=== PATIENT | male | born 1965 | race Caucasian/White ===

== ENCOUNTER → 2019-09-20 07:54 | Outpatient (CLI) | payer OTHER, SELFPAY ==
[2019-09-09 14:30] VITALS: BMI 29.4
--- NOTE | 2019-09-20 08:04 | RAD_ITS ---
CLINICAL HISTORY: Male, 54 years old. Reflux, hiatal hernia PROCEDURE: Upper GI series Technique: Multiple fluoroscopic assessment performed after administration of double contrast medium, followed by single contrast medium with images acquired along the esophagus, stomach and duodenum. Findings: Single and also double contrast study of the esophagus demonstrate that there is unremarkable mucosal pattern of the esophagus, without evidence of intraluminal lesion or stricture. A moderate paraesophageal hernia is observed measuring 6.8 x 7.7 x 8.1 cm (craniocaudal by AP by transverse). There is gastroesophageal reflux, up to the mid one-third of the esophagus. Evaluation of stomach demonstrates unremarkable contour of the rugae folds of stomach, without evidence of intraluminal lesion. Unremarkable peristalsis. The duodenal bulb and sweep are unremarkable. RAD/Upper GI w/BA Swallow IMPRESSION: A moderate paraesophageal hernia is observed measuring 6.8 x 7.7 x 8.1 cm (craniocaudal by AP by transverse). Presence of GERD, to mid portion of the esophagus. Otherwise unremarkable mucosal appearance of the esophagus, stomach and duodenum. Electronically Signed: Edison Rudd MD at 15:58 EST Tel [phone], Service support ,
== END ==
PROVIDERS: Referring Provider Surgery; Visit Provider Surgery
DX: K21.9 Gastro-esophageal reflux disease without esophagitis (principal); R13.10 Dysphagia, unspecified
CPT/HCPCS: 74246

== ENCOUNTER 2019-09-22 11:36 | Day surgery (SDC) | payer OTHER, SELFPAY ==
--- NOTE | 2019-09-09 02:59 | HP_ITS ---
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 Is patient in pain?: No Allergies cephalexin [From Keflex] Allergy (Mild, Verified 09/09/19 14:19) rash Medications lisinopril 10 mg tablet PO #30 tab 09/09/19 [History Confirmed 09/09/19] pravastatin 20 mg tablet PO #30 tab 09/09/19 [History Confirmed 09/09/19] sumatriptan 50 mg tablet PO #10 tab 09/09/19 [History Confirmed 09/09/19] PFS Medical History (Updated 09/09/19 @ 14:57 by Karan Cleveland MD) GERD (gastroesophageal reflux disease) (Acute) Cervical radiculopathy (Acute) BETTINA (generalized anxiety disorder) (Acute) GERD (gastroesophageal reflux disease) (Acute) Hyperlipidemia (Acute) IBS (irritable bowel syndrome) (Acute) SOB (shortness of breath) on exertion (Acute) HTN (hypertension) (Chronic) Surgical History (Updated 09/09/19 @ 14:30 by Angela Willis) History of cholecystectomy (Acute) History of colonoscopy (Acute ~2017) History of esophagogastroduodenoscopy (EGD) (Acute ~2017) History of left inguinal hernia repair (Acute) Family History (Updated 09/09/19 @ 14:30 by Angela Willis) Father Hypertension HPI HPI HPI: KARSTEN DOUGLASS, is a 54 M who presents to the office today for HPI HPI Surgical H&P: Yes HPI: KARSTEN DOUGLASS, is a 54 M who presents to the office today for surgical consultation regarding accelerating problems with gastroesophageal reflux disease. The patient presents in self-referral. His primary care physician is Dr. Parra but the patient instructs me that Dr. Parra will be retiring soon. The patient states that for many years he has had reflux. Complains that in the morning after eating he can feel the food coming back up. He will take Prilosec/omeprazole 20 mg sometimes 2 times sometimes 3 times a day. Symptoms are worse at night as well when he lies down. He does not have any coughing. He does note however shortness of breath when he climbs a flight of stairs or plays racquetball. 2 years ago he had a combined upper and lower endoscopy. States that he has been instructed that he does have a hiatal hernia. He is familiar with the patient that I have assisted with a antireflux procedure who had a good outcome. The patient presents to see if he would be a candidate for this. He is a diesel truck technician. He states that he has not had other cardiac or pulmonary issues. He is not ever required a stress test. He has had a previous cholecystectomy. He has had a pyloric stenosis procedure pyloromyotomy at 6 weeks of age. He has had a previous left inguinal hernia repair. ROS General General: No weight change, appetite, fatigue, colon cancer, breast cancer or weakness HEENT HEENT: No difficulty swallowing, eye injury, eye surgery, swollen glands or hoarseness Endo Endocrine: No thyroid disease, diabetes mellitus, thyroid cancer, Hair loss, heat intolerance or cold intolerance Musc Musculoskeletal: Yes back problems and arthritis; no rheumatoid arthritis, gout or joint pain Cardio Cardiovascular: Yes high blood pressure; no murmur, pacemaker, heart disease, atrial fibrillation, heart attack, heart stent, palpitations, shortness of breat with exertion or chest pain Psych Psychiatric: Yes anxiety; no depression or hearing voices Resp Respiratory: Yes shortness of breath, No sleep apnea, No cough, No COPD, No asthma, No emphysema, No wheezing Gastro Gastrointestinal: No abdominal pain, No nausea or vomiting, Yes diarrhea, No constipation, Yes blood in stool, Yes acid reflux, No hemorrhoids, No ulcers, No gallbladder problem, No black,tarry stools Pierre Hematologic: No blood thinners, No blood disorders, No bleeding, No anemia, No blood clots Neuro Neurologic: No weakness Exam Const General: cooperative, healthy appearing, comfortable, no acute distress Nutritional Appearance: average body habitus Orientation: alert, awake, oriented x3 HENMT Head: normal to inspection Eyes General: appearance normal, both eyes and all related structures Resp Effort & Inspection: normal respiratory effort Auscultation: clear to auscultation bilaterally Cardio Rate: regular rate Rhythm: regular rhythm Heart Sounds: no murmurs GI Palpation: soft Other: Well-healed transverse incision inferior to the umbilicus. Tender to palpation in the epigastrium and right upper quadrant and right mid abdomen with voluntary guarding. Normal bowel sounds. Otherwise soft. No hepatosplenomegaly. Patient is more superficially tender to touch than otherwise anticipated Skin General: no rashes or lesions noted Neuro Cognition: normal cognition Extrem General: no calf tenderness bilaterally Psych Affect: normal affect Assessment & Plan Problems 1. Gastroesophageal reflux disease, esophagitis presence not specified K21.9 Plan 54-year-old gentleman. He appears to have symptoms that correlate well with escalating gastroesophageal reflux disease and symptomatic hiatal hernia. I have recommended to him that we obtain a barium swallow. I am interested in the size of the hiatal hernia as well as his history of what sounds like a pyloromyotomy. I recommend to him a esophagogastroduodenoscopy with Quinteros probe placement. I recommend to him a manometric study. In great detail I have discussed with him the reasons behind this testing and the importance of it prior to us considering proceeding with a laparoscopic hiatal hernia repair and reflux procedure. I am suspecting that he would be a better candidate for a partial wrap. He has had an opportunity to ask and have questions answered. He will proceed with testing at his discretion. Cc: Dr. Fidel Cleveland M.D., F.A.C.S. Coding Level of Care Code Off vis,new,level 4 Diagnoses Gastroesophageal reflux disease, esophagitis presence not specified K21.9 ??Esophagitis presence: esophagitis presence not specified 09/09/19 3424 <Electronically signed by Karan villarreal MD> Date _ Karan Cleveland MD Barium swallow demonstrate a moderately large paraesophageal hiatal hernia with reflux noted. We will proceed as indicated with the esophagogastroduodenoscopy and plan placement of the pH probe. I am anticipating recommendations for future esophageal manometry and then subsequent definitive surgery. I suspect that the paraesophageal component of his hernia is causing his dyspnea on exertion. Karan Cleveland M.D., F.A.C.S.
[2019-09-09 14:30] VITALS: BMI 29.4
[2019-09-22 12:05] VITALS: BP 150/94; PULSE 81; RESP 16; TEMP 36.7; O2SAT 99
== END 2019-09-22 12:56 | disposition home or self-care (01) ==
PROVIDERS: Family Provider Nurse Practitioner Family; PCP Nurse Practitioner Family; Referring Provider Nurse Practitioner Family; Visit Provider Surgery
PROC: F00ZJWZ Instrumental Swallowing and Oral Function Assessment using Swallowing Equipment (ICD-10-PCS; CPT 43235; principal; 2019-09-22 12:25)
DX: K21.9 Gastro-esophageal reflux disease without esophagitis (principal)
CPT/HCPCS: 91010; 91013

== ENCOUNTER 2019-09-27 05:48 | Day surgery (SDC) | payer OTHER, SELFPAY ==
--- NOTE | 2019-09-09 02:59 | HP_ITS ---
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 Is patient in pain?: No Allergies cephalexin [From Keflex] Allergy (Mild, Verified 09/09/19 14:19) rash Medications lisinopril 10 mg tablet PO #30 tab 09/09/19 [History Confirmed 09/09/19] pravastatin 20 mg tablet PO #30 tab 09/09/19 [History Confirmed 09/09/19] sumatriptan 50 mg tablet PO #10 tab 09/09/19 [History Confirmed 09/09/19] PFS Medical History (Updated 09/09/19 @ 14:57 by Karan Cleveland MD) GERD (gastroesophageal reflux disease) (Acute) Cervical radiculopathy (Acute) BETTINA (generalized anxiety disorder) (Acute) GERD (gastroesophageal reflux disease) (Acute) Hyperlipidemia (Acute) IBS (irritable bowel syndrome) (Acute) SOB (shortness of breath) on exertion (Acute) HTN (hypertension) (Chronic) Surgical History (Updated 09/09/19 @ 14:30 by Angela Willis) History of cholecystectomy (Acute) History of colonoscopy (Acute ~2017) History of esophagogastroduodenoscopy (EGD) (Acute ~2017) History of left inguinal hernia repair (Acute) Family History (Updated 09/09/19 @ 14:30 by Angela Willis) Father Hypertension HPI HPI HPI: KARSTEN DOUGLASS, is a 54 M who presents to the office today for HPI HPI Surgical H&P: Yes HPI: KARSTEN DOUGLASS, is a 54 M who presents to the office today for surgical consultation regarding accelerating problems with gastroesophageal reflux disease. The patient presents in self-referral. His primary care physician is Dr. Parra but the patient instructs me that Dr. Parra will be retiring soon. The patient states that for many years he has had reflux. Complains that in the morning after eating he can feel the food coming back up. He will take Prilosec/omeprazole 20 mg sometimes 2 times sometimes 3 times a day. Symptoms are worse at night as well when he lies down. He does not have any coughing. He does note however shortness of breath when he climbs a flight of stairs or plays racquetball. 2 years ago he had a combined upper and lower endoscopy. States that he has been instructed that he does have a hiatal hernia. He is familiar with the patient that I have assisted with a antireflux procedure who had a good outcome. The patient presents to see if he would be a candidate for this. He is a delivery truck driver. He states that he has not had other cardiac or pulmonary issues. He is not ever required a stress test. He has had a previous cholecystectomy. He has had a pyloric stenosis procedure pyloromyotomy at 6 weeks of age. He has had a previous left inguinal hernia repair. ROS General General: No weight change, appetite, fatigue, colon cancer, breast cancer or weakness HEENT HEENT: No difficulty swallowing, eye injury, eye surgery, swollen glands or hoarseness Endo Endocrine: No thyroid disease, diabetes mellitus, thyroid cancer, Hair loss, heat intolerance or cold intolerance Musc Musculoskeletal: Yes back problems and arthritis; no rheumatoid arthritis, gout or joint pain Cardio Cardiovascular: Yes high blood pressure; no murmur, pacemaker, heart disease, atrial fibrillation, heart attack, heart stent, palpitations, shortness of breat with exertion or chest pain Psych Psychiatric: Yes anxiety; no depression or hearing voices Resp Respiratory: Yes shortness of breath, No sleep apnea, No cough, No COPD, No asthma, No emphysema, No wheezing Gastro Gastrointestinal: No abdominal pain, No nausea or vomiting, Yes diarrhea, No constipation, Yes blood in stool, Yes acid reflux, No hemorrhoids, No ulcers, No gallbladder problem, No black,tarry stools Pierre Hematologic: No blood thinners, No blood disorders, No bleeding, No anemia, No blood clots Neuro Neurologic: No weakness Exam Const General: cooperative, healthy appearing, comfortable, no acute distress Nutritional Appearance: average body habitus Orientation: alert, awake, oriented x3 HENMT Head: normal to inspection Eyes General: appearance normal, both eyes and all related structures Resp Effort & Inspection: normal respiratory effort Auscultation: clear to auscultation bilaterally Cardio Rate: regular rate Rhythm: regular rhythm Heart Sounds: no murmurs GI Palpation: soft Other: Well-healed transverse incision inferior to the umbilicus. Tender to palpation in the epigastrium and right upper quadrant and right mid abdomen with voluntary guarding. Normal bowel sounds. Otherwise soft. No hepatosplenomegaly. Patient is more superficially tender to touch than otherwise anticipated Skin General: no rashes or lesions noted Neuro Cognition: normal cognition Extrem General: no calf tenderness bilaterally Psych Affect: normal affect Assessment & Plan Problems 1. Gastroesophageal reflux disease, esophagitis presence not specified K21.9 Plan 54-year-old gentleman. He appears to have symptoms that correlate well with escalating gastroesophageal reflux disease and symptomatic hiatal hernia. I have recommended to him that we obtain a barium swallow. I am interested in the size of the hiatal hernia as well as his history of what sounds like a pyloromyotomy. I recommend to him a esophagogastroduodenoscopy with Quinteros probe placement. I recommend to him a manometric study. In great detail I have discussed with him the reasons behind this testing and the importance of it prior to us considering proceeding with a laparoscopic hiatal hernia repair and reflux procedure. I am suspecting that he would be a better candidate for a partial wrap. He has had an opportunity to ask and have questions answered. He will proceed with testing at his discretion. Cc: Dr. Fidel Cleveland M.D., F.A.C.S. Coding Level of Care Code Off vis,new,level 4 Diagnoses Gastroesophageal reflux disease, esophagitis presence not specified K21.9 ??Esophagitis presence: esophagitis presence not specified 09/09/19 4095 <Electronically signed by Karan villarreal MD> Date _ Karan Cleveland MD
[2019-09-09 14:30] VITALS: BMI 29.4
[2019-09-27 06:35] VITALS: BP 126/85; PULSE 78; RESP 16; O2SAT 96; BMI 28.1
[2019-09-27] MEDS: Lactated Ringers 1,000 ML 100 ML IV (06:48)
--- NOTE | 2019-09-27 06:54 | PCM.HP.BLA ---
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 Is patient in pain?: No Allergies cephalexin [From Keflex] Allergy (Mild, Verified 09/09/19 14:19) rash Medications lisinopril 10 mg tablet PO #30 tab 09/09/19 [History Confirmed 09/09/19] pravastatin 20 mg tablet PO #30 tab 09/09/19 [History Confirmed 09/09/19] sumatriptan 50 mg tablet PO #10 tab 09/09/19 [History Confirmed 09/09/19] [facility] Medical History (Updated 09/09/19 @ 14:57 by Karan Cleveland MD) GERD (gastroesophageal reflux disease) (Acute) Cervical radiculopathy (Acute) BETTINA (generalized anxiety disorder) (Acute) GERD (gastroesophageal reflux disease) (Acute) Hyperlipidemia (Acute) IBS (irritable bowel syndrome) (Acute) SOB (shortness of breath) on exertion (Acute) HTN (hypertension) (Chronic) Surgical History (Updated 09/09/19 @ 14:30 by Angela Willis) History of cholecystectomy (Acute) History of colonoscopy (Acute ~2017) History of esophagogastroduodenoscopy (EGD) (Acute ~2017) History of left inguinal hernia repair (Acute) Family History (Updated 09/09/19 @ 14:30 by Angela Willis) Father Hypertension HPI HPI HPI: KARSTEN DOUGLASS, is a 54 M who presents to the office today for HPI HPI Surgical H&P: Yes HPI: KARSTEN DOUGLASS, is a 54 M who presents to the office today for surgical consultation regarding accelerating problems with gastroesophageal reflux disease. The patient presents in self-referral. His primary care physician is Dr. Parra but the patient instructs me that Dr. Parra will be retiring soon. The patient states that for many years he has had reflux. Complains that in the morning after eating he can feel the food coming back up. He will take Prilosec/omeprazole 20 mg sometimes 2 times sometimes 3 times a day. Symptoms are worse at night as well when he lies down. He does not have any coughing. He does note however shortness of breath when he climbs a flight of stairs or plays rac[employer]. 2 years ago he had a combined upper and lower endoscopy. States that he has been instructed that he does have a hiatal hernia. He is familiar with the patient that I have assisted with a antireflux procedure who had a good outcome. The patient presents to see if he would be a candidate for this. He is a garbage truck driver. He states that he has not had other cardiac or pulmonary issues. He is not ever required a stress test. He has had a previous cholecystectomy. He has had a pyloric stenosis procedure pyloromyotomy at 6 weeks of age. He has had a previous left inguinal hernia repair. ROS General General: No weight change, appetite, fatigue, colon cancer, breast cancer or weakness HEENT HEENT: No difficulty swallowing, eye injury, eye surgery, swollen glands or hoarseness Endo Endocrine: No thyroid disease, diabetes mellitus, thyroid cancer, Hair loss, heat intolerance or cold intolerance Musc Musculoskeletal: Yes back problems and arthritis; no rheumatoid arthritis, gout or joint pain Cardio Cardiovascular: Yes high blood pressure; no murmur, pacemaker, heart disease, atrial fibrillation, heart attack, heart stent, palpitations, shortness of breat with exertion or chest pain Psych Psychiatric: Yes anxiety; no depression or hearing voices Resp Respiratory: Yes shortness of breath, No sleep apnea, No cough, No COPD, No asthma, No emphysema, No wheezing Gastro Gastrointestinal: No abdominal pain, No nausea or vomiting, Yes diarrhea, No constipation, Yes blood in stool, Yes acid reflux, No hemorrhoids, No ulcers, No gallbladder problem, No black,tarry stools Pierre Hematologic: No blood thinners, No blood disorders, No bleeding, No anemia, No blood clots Neuro Neurologic: No weakness Exam Const General: cooperative, healthy appearing, comfortable, no acute distress Nutritional Appearance: average body habitus Orientation: alert, awake, oriented x3 HENMT Head: normal to inspection Eyes General: appearance normal, both eyes and all related structures Resp Effort & Inspection: normal respiratory effort Auscultation: clear to auscultation bilaterally Cardio Rate: regular rate Rhythm: regular rhythm Heart Sounds: no murmurs GI Palpation: soft Other: Well-healed transverse incision inferior to the umbilicus. Tender to palpation in the epigastrium and right upper quadrant and right mid abdomen with voluntary guarding. Normal bowel sounds. Otherwise soft. No hepatosplenomegaly. Patient is more superficially tender to touch than otherwise anticipated Skin General: no rashes or lesions noted Neuro Cognition: normal cognition Extrem General: no calf tenderness bilaterally Psych Affect: normal affect Assessment & Plan Problems 1. Gastroesophageal reflux disease, esophagitis presence not specified K21.9 Plan 54-year-old gentleman. He appears to have symptoms that correlate well with escalating gastroesophageal reflux disease and symptomatic hiatal hernia. I have recommended to him that we obtain a barium swallow. I am interested in the size of the hiatal hernia as well as his history of what sounds like a pyloromyotomy. I recommend to him a esophagogastroduodenoscopy with Quinteros probe placement. I recommend to him a manometric study. In great detail I have discussed with him the reasons behind this testing and the importance of it prior to us considering proceeding with a laparoscopic hiatal hernia repair and reflux procedure. I am suspecting that he would be a better candidate for a partial wrap. He has had an opportunity to ask and have questions answered. He will proceed with testing at his discretion. Cc: Dr. Fidel Cleveland M.D., F.A.C.S. Coding Level of Care Code Off vis,new,level 4 Diagnoses Gastroesophageal reflux disease, esophagitis presence not specified K21.9 ??Esophagitis presence: esophagitis presence not specified 09/09/19 0150 <Electronically signed by Karan Cleveland MD> Date Karan Cleveland MD Moderately large paraesophageal hiatal hernia identified on barium swallow. I suspect that this is adding to his shortness of breath with exertion. Plan to proceed with esophagogastroduodenoscopy with biopsy and pH probe placement. Karan Cleveland M.D., F.A.C.S.
--- NOTE | 2019-09-27 07:00 | EGD_PTH ---
PATIENT: KARSTEN DOUGLASS LOC: EN U#:[id number] AGE/SX: 54/M ROOM: RE09/27/[address]: Dr. Karan Cleveland MD : 1965 BED: DIS: 09/27/2019 SPEC #: [id number] RECD: 09/27/19 12:15 STATUS: KODAK TRICIA #: [id number] MAXIM: 09/27/19 07:[address]: Karan Cleveland DEPT: SURGICAL PATHOLOGY RECD BY: Clarence Arriola ENTERED: 09/27/19 12:16 SP TYPE: EGD BIOPSY OT DR: Dr. Audelia Parra MD Tissues: A - Duodenum, NOS B - Gastric mucous membrane C - Esophageal mucous membrane Procedures: PAS Fungus (control) Special Stain Group I Surgery Specimen Level IV HEADER OPERATION: EGD - PH probe ([facility] [place] PRE-OP DIAGNOSIS: GERD TISSUE SUBMITTED: A - Duodenal biopsy, B - Antral biopsy for H. pylori and pathology, C - Distal esophageal biopsy MICROSCOPIC DIAGNOSIS A. Duodenal biopsy: A fragment of duodenal mucosa with Bridgette gland hyperplasia. B. Antral biopsy: Mild gastritis. See microscopic description and comment. C. Distal esophagus, biopsy: Fragments of squamous epithelium with superficial erosion and acute inflammation. Focal minimal chronic inflammation. Special stain for fungi is negative for organisms; matched control is appropriate. SJ:corbin 09/29/19 COMMENT B. The results of immunohistochemistry for Helicobacter pylori will be reported separately ([id number]). MICROSCOPIC DESCRIPTION Slides are reviewed. B. The specimen shows fragments of gastric mucosa with chronic inflammatory cell infiltrates in the lamina propria consisting of lymphocytes and plasma cells, consistent with mild chronic gastritis. GROSS DESCRIPTION A - Received in fixative is one container labeled with the patient's name and designated duodenum biopsy. The specimen consists of one irregular fragment of light wan soft tissue that measures 0.5 x 0.2 x 0.1 cm. The specimen is totally submitted in one cassette. B - Received in fixative is one container labeled with the patient's name and designated antral biopsy. The specimen consists of one irregular fragment of light wan soft tissue that measures 0.2 x 0.2 x 0.1 cm. The specimen is totally submitted in one cassette. C - Received in fixative is one container labeled with the patient's name and designated distal esophagus. The specimen consists of multiple irregular fragments of light wan soft tissue that in aggregate measure 0.6 x 0.3 x 0.1 cm. The specimen is totally submitted in one cassette. / AM:corbin 09/27/19 TC:3 CPT: 62907 x3, [id number]
--- NOTE | 2019-09-27 07:00 | IMM_PTH ---
PATIENT: KARSTEN DOUGLASS LOC: EN U#:[id number] AGE/SX: 54/M ROOM: RE09/27/[address]: Dr. Karan Cleveland MD : 1965 BED: DIS: 09/27/2019 SPEC #: [id number] RECD: 09/27/19 12:04 STATUS: KODAK REBritany #: [id number] MAXIM: 09/27/19 07:[address]: Karan Cleveland DEPT: IMMUNOHISTOCHEMISTRY RECD BY: Samra Rich ENTERED: 09/27/19 12:05 SP TYPE: IMMUNO OTHR DR: Dr. Audelia Parra MD Tissues: B - Stomach, NOS Procedures: H Pylori (initial) PHYSICIAN & INSTITUTION [place] [address] SPECIMEN INFORMATION: Tissue Source: B - Antral biopsy Clinical Info: GERD Specimen Number: [id number] CPT code: 30075 METHODOLOGY: Deparaffinized sections of prefer/formalin-fixed tissue or PAP/DQ stained slides are incubated with monoclonal/polyclonal antibodies/oligonucleotide probes. Localization is made via biotin free immunoperoxidase method. Appropriate controls are performed and reacted as expected. Results on target cell population are indicated in the following table: RESULTS: ANTIBODY / CLONE RESULT Block B H Pylori (polyclonal) negative These tests were developed and their performance characteristics determined by [facility]. They may not have been cleared or approved by the U.S. Food and Drug Administration. The FDA has determined that such clearance or approval is not necessary. INTERPRETATION: B. Antral biopsy: Negative for Helicobacter pylori organisms. SJ:corbin 09/29/19
[2019-09-27 07:25] VITALS: BP 115/81; BP 126/85; PULSE 73; RESP 16; TEMP 36.8; O2SAT 98
--- NOTE | 2019-09-27 07:27 | OP.EGD_ITS ---
Patient Name: Fidencio Espinal Procedure Date: 09/27/2019 6:58 AM Date of : 1965 Age: 54 Procedure: Upper GI endoscopy Indications: Suspected esophageal reflux Providers: Karan Cleveland MD Referring MD: Audelia Parra Md Medicines: See the Anesthesia note for documentation of the administered medications Complications: No immediate complications. Procedure: Pre-Anesthesia Assessment: - Prior to the procedure, a History and Physical was performed, and patient medications and allergies were reviewed. The patient's tolerance of previous anesthesia was also reviewed. The risks and benefits of the procedure and the sedation options and risks were discussed with the patient. All questions were answered, and informed consent was obtained. Prior Anticoagulants: The patient has taken no previous anticoagulant or antiplatelet agents. ASA Grade Assessment: II - A patient with mild systemic disease. After reviewing the risks and benefits, the patient was deemed in satisfactory condition to undergo the procedure. After obtaining informed consent, the endoscope was passed under direct vision. Throughout the procedure, the patient's blood pressure, pulse, and oxygen saturations were monitored continuously. The gastroscope was introduced through the mouth, and advanced to the second part of duodenum. The upper GI endoscopy was accomplished without difficulty. The patient tolerated the procedure well. Scope In: 7:09:39 AM Scope Out: 7:18:24 AM Total Procedure Duration Time 0 hours 8 minutes 45 seconds Findings: LA Grade B (one or more mucosal breaks greater than 5 mm, not extending between the tops of two mucosal folds) esophagitis with no bleeding was found 40 cm from the incisors. Biopsies were taken with a cold forceps for histology. A medium-sized hiatal hernia was present. Diffuse erythematous mucosa without bleeding was found in the gastric antrum. Biopsies were taken with a cold forceps for histology. Diffuse mildly erythematous mucosa without active bleeding and with no stigmata of bleeding was found in the duodenal bulb. Biopsies were taken with a cold forceps for histology. The CHAU capsule with delivery system was introduced through the mouth and advanced into the esophagus, such that the CHAU pH capsule was positioned 34 cm from the incisors, which was 6 cm proximal to the GE junction. The CHAU pH capsule was then deployed and attached to the esophageal mucosa. The delivery system was then withdrawn. Endoscopy was utilized for probe placement and diagnostic evaluation. Impression: - LA Grade B reflux esophagitis. Biopsied. - Medium-sized hiatal hernia. - Erythematous mucosa in the antrum. Biopsied. - Erythematous duodenopathy. Biopsied. - The CHAU pH capsule was deployed. Recommendation: - Discharge patient to home. - Resume previous diet. - Continue present medications. - Return to my office in 10 days. Procedure Code(s): --- Professional --- 34281, 51, Esophagogastroduodenoscopy, flexible, transoral; with biopsy, single or multiple 96407, Esophagus, gastroesophageal reflux test; with mucosal attached telemetry pH electrode placement, recording, analysis and interpretation Diagnosis Code(s): --- Professional --- K21.0, Gastro-esophageal reflux disease with esophagitis K44.9, Diaphragmatic hernia without obstruction or gangrene K31.89, Other diseases of stomach and duodenum CPT copyright 2017 [employer]. All rights reserved. The codes documented in this report are preliminary and upon corporate associate review may be revised to meet current compliance requirements. Karan Cleveland MD 09/27/2019 7:27:07 AM This report has been signed electronically. Number of Addenda: 0 Note Initiated On: 09/27/2019 6:58 AM
[2019-09-27 07:30] VITALS: BP 117/79; BP 126/85; PULSE 82; RESP 16; O2SAT 94
[2019-09-27 07:35] VITALS: BP 114/80; BP 126/85; PULSE 78; RESP 16; O2SAT 92
[2019-09-27 07:40] VITALS: BP 116/76; BP 126/85; PULSE 78; RESP 16; TEMP 36.8; O2SAT 93
[2019-09-27 08:30] VITALS: BP 126/85
== END 2019-09-27 08:31 | disposition home or self-care (01) ==
LOC: EN 05:48 → AC 05:49
PROVIDERS: Visit Provider Surgery
PROC: (CPT 43239; principal; 2019-09-27 06:55)
DX: K21.0 Gastro-esophageal reflux disease with esophagitis (principal); K29.70 Gastritis, unspecified, without bleeding; K44.9 Diaphragmatic hernia without obstruction or gangrene; K31.89 Other diseases of stomach and duodenum; I10 Essential (primary) hypertension; E78.00 Pure hypercholesterolemia, unspecified; G43.909 Migraine, unspecified, not intractable, without status migrainosus; Z79.899 Other long term (current) drug therapy
CPT/HCPCS: 43239; 91035; 88305; 88312; 88342; J7120; J2405

== ENCOUNTER 2019-10-31 14:47 | Observation (INO) | payer OTHER, SELFPAY ==
--- NOTE | 2019-10-28 14:19 | EKG12_ITS ---
Test Reason : PREOP Blood Pressure : / mmHG Vent. Rate : 074 BPM Atrial Rate : 074 BPM P-R Int : 146 ms QRS Dur : 100 ms QT Int : 388 ms P-R-T Axes : 069 034 059 degrees QTc Int : 430 ms Normal sinus rhythm Normal ECG Confirmed by LEIGHTON NAVA, LEROY ([id number]), primer expeditor and drier RADHA PRIETO ([id number]) on 11/01/2019 8:14:02 AM Referred By: Karan Cleveland Confirmed By:LEROY MANZANARES MD
[2019-10-28 14:50] LABS: Hemoglobin 12.8 g/dL (13.0-16.5); Mean Corp Hgb Conc 30.5 g/dL (32-36); Mean Corpuscular Hgb 24.7 pg (27.0-32.0); Mean Corpuscular Volume 81.1 fL (80-94); Mean Platelet Vol. 11.1 fl (6.2-12.0); Platelet Count 240 K/mm3 (150-450); RBC Distribution Width CV 13.6 % (11.6-14.6); RBC Distribution Width SD 39.8 fl (35.1-43.9); Red Blood Count 5.18 M/mm3 (4.6-6.2); White Blood Count 7.2 K/mm3 (4.4-11.0)
[2019-10-28 15:07] LABS: Anion Gap 4 (5-15); BUN 13 mg/dL (7-18); BUN/Creat Ratio 11.8 RATIO (10-20); Chloride 106 mmol/L (98-107); EST Glomerular Filtration Rate 74 mL/min (>60); Est Glom Filt Rate - Afr Amer 90 mL/min (>60); Glucose 96 mg/dL (74-106); Potassium 3.5 mmol/L (3.5-5.1); Sodium Level 138 mmol/L (136-145)
[2019-10-31] VITALS (13 sets, daily range): BP systolic 107–153; BP diastolic 62–97; PULSE 71–99; RESP 16–18; TEMP 36.4–37.1; O2SAT 93–97; BMI 27.8
[2019-10-31] MEDS: Lactated Ringers 1,000 ML 100 ML IV (06:18)
--- NOTE | 2019-10-31 06:32 | HP.PCM_ITS ---
Problem List (1) GERD (gastroesophageal reflux disease) Status: Acute Qualifiers: Esophagitis presence: with esophagitis Qualified Code(s): K21.0 - Gastro- esophageal reflux disease with esophagitis History and Physical Date of Admission: 10/31/19 MR#:[id number] Name: FIDENCIO DOUGLASS Rep #: [id number] : 1965 Provider: Karan Cleveland MD Age/Sex: 54/M Location: [facility] Status: Signed Intake Intake Visit Reasons: PH probe, manometry, UGI Chief Complaint: results Leadership Program Associate Required: No Is patient in pain?: No Allergies cephalexin [From Keflex] Allergy (Mild, Verified 09/23/19 08:51) rash Medications lisinopril 10 mg tablet 10 mg PO DAILY #30 tab 09/09/19 [History Confirmed 10/07/19] pravastatin 20 mg tablet 20 mg PO DAILY #30 tab 09/09/19 [History Confirmed 10/07/19] sumatriptan succinate 50 mg tablet 50 mg PO PRN PRN #10 tab 09/09/19 [History Confirmed 10/07/19] Omeprazole [Prilosec] 20 mg PO BID 09/23/19 [History Confirmed 10/07/19] Subjective Details: [facility] Medical Records Department [address] [place] [address] EGD Report MR#: [id number] Name:FIDENCIO DOUGLASSep #:[id number] : 1965 54From: Karan Cleveland MD PCP:Audelia Parra MD Status:[facility] Patient Name: Fidencio Douglass Procedure Date: 09/27/2019 6:58 AM Date of : 1965 Age: 54 Procedure: Upper GI endoscopy Indications: Suspected esophageal reflux Providers: Karan Cleveland MD Referring MD: Audelia Parra Md Medicines: See the Anesthesia note for documentation of the administered medications Complications: No immediate complications. Procedure: Pre-Anesthesia Assessment: - Prior to the procedure, a History and Physical was performed, and patient medications and allergies were reviewed. The patient's tolerance of previous anesthesia was also reviewed. The risks and benefits of the procedure and the sedation options and risks were discussed with the patient. All questions were answered, and informed consent was obtained. Prior Anticoagulants: The patient has taken no previous anticoagulant or antiplatelet agents. ASA Grade Assessment: II - A patient with mild systemic disease. After reviewing the risks and benefits, the patient was deemed in satisfactory condition to undergo the procedure. After obtaining informed consent, the endoscope was passed under direct vision. Throughout the procedure, the patient's blood pressure, pulse, and oxygen saturations were monitored continuously. The gastroscope was introduced through the mouth, and advanced to the second part of duodenum. The upper GI endoscopy was accomplished without difficulty. The patient tolerated the procedure well. Scope In: 7:09:39 AM Scope Out: 7:18:24 AM Total Procedure Duration Time 0 hours 8 minutes 45 seconds Findings: LA Grade B (one or more mucosal breaks greater than 5 mm, not extending between the tops of two mucosal folds) esophagitis with no bleeding was found 40 cm from the incisors. Biopsies were taken with a cold forceps for histology. A medium-sized hiatal hernia was present. Diffuse erythematous mucosa without bleeding was found in the gastric antrum. Biopsies were taken with a cold forceps for histology. Diffuse mildly erythematous mucosa without active bleeding and with no stigmata of bleeding was found in the duodenal bulb. Biopsies were taken with a cold forceps for histology. The CHAU capsule with delivery system was introduced through the mouth and advanced into the esophagus, such that the CHAU pH capsule was positioned 34 cm from the incisors, which was 6 cm proximal to the GE junction. The CHAU pH capsule was then deployed and attached to the esophageal mucosa. The delivery system was then withdrawn. Endoscopy was utilized for probe placement and diagnostic evaluation. Impression: - LA Grade B reflux esophagitis. Biopsied. - Medium-sized hiatal hernia. - Erythematous mucosa in the antrum. Biopsied. - Erythematous duodenopathy. Biopsied. - The CHAU pH capsule was deployed. Recommendation: - Discharge patient to home. - Resume previous diet. - Continue present medications. - Return to my office in 10 days. Procedure Code(s): --- Professional --- 79477, 51, Esophagogastroduodenoscopy, flexible, transoral; with biopsy, single or multiple 52563, Esophagus, gastroesophageal reflux test; with mucosal attached telemetry pH electrode placement, recording, analysis and interpretation Diagnosis Code(s): --- Professional --- K21.0, Gastro-esophageal reflux disease with esophagitis K44.9, Diaphragmatic hernia without obstruction or gangrene K31.89, Other diseases of stomach and duodenum CPT copyright 2017 [employer]. All rights reserved. The codes documented in this report are preliminary and upon barrel cooper review may be revised to meet current compliance requirements. Karan Cleveland MD 09/27/2019 7:27:07 AM This report has been signed electronically. Number of Addenda: 0 Note Initiated On: 09/27/2019 6:58 AM 09/27/19 0727 Date Karan Cleveland MD [facility] Imaging Services [address] [place] [id number] Upper GI w/BA Swallow MR#: [id number] Name: FIDENCIO DOUGLASS #:[id number] : 1965 54 From: Edison Rudd MD PCP:Audelia Parra MD Status:REG CLI Study:Upper GI w/BA Swallow Date of Exam:09/20/19 Exam#[id number] Ordering Dr: Karan Cleveland MD CLINICAL HISTORY: Male, 54 years old. Reflux, hiatal hernia PROCEDURE: Upper GI series Technique: Multiple fluoroscopic assessment performed after administration of double contrast medium, followed by single contrast medium with images acquired along the esophagus, stomach and duodenum. Findings: Single and also double contrast study of the esophagus demonstrate that there is unremarkable mucosal pattern of the esophagus, without evidence of intraluminal lesion or stricture. A moderate paraesophageal hernia is observed measuring 6.8 x 7.7 x 8.1 cm (craniocaudal by AP by transverse). There is gastroesophageal reflux, up to the mid one-third of the esophagus. Evaluation of stomach demonstrates unremarkable contour of the rugae folds of stomach, without evidence of intraluminal lesion. Unremarkable peristalsis. The duodenal bulb and sweep are unremarkable. RAD/Upper GI w/BA Swallow IMPRESSION: A moderate paraesophageal hernia is observed measuring 6.8 x 7.7 x 8.1 cm (craniocaudal by AP by transverse). Presence of GERD, to mid portion of the esophagus. Otherwise unremarkable mucosal appearance of the esophagus, stomach and duodenum. Electronically Signed: Edison Rudd MD at 15:58 EST Tel [phone], Service support , Intake Visit Reasons: REFLUX & ABD PAIN/HX OF HIATAL HERNIA Chief Complaint: GERD Leadership Program Associate Required: No Is patient in pain?: No Allergies cephalexin [From Keflex] Allergy (Mild, Verified 09/09/19 14:19) rash Medications lisinopril 10 mg tablet PO #30 tab 09/09/19 [History Confirmed 09/09/19] pravastatin 20 mg tablet PO #30 tab 09/09/19 [History Confirmed 09/09/19] sumatriptan 50 mg tablet PO #10 tab 09/09/19 [History Confirmed 09/09/19] PFSH Medical History (Updated 09/09/19 @ 14:57 by Karan Cleveland MD) GERD (gastroesophageal reflux disease) (Acute) Cervical radiculopathy (Acute) BETTINA (generalized anxiety disorder) (Acute) GERD (gastroesophageal reflux disease) (Acute) Hyperlipidemia (Acute) IBS (irritable bowel syndrome) (Acute) SOB (shortness of breath) on exertion (Acute) HTN (hypertension) (Chronic) Surgical History (Updated 09/09/19 @ 14:30 by Angela Willis) History of cholecystectomy (Acute) History of colonoscopy (Acute ~2017) History of esophagogastroduodenoscopy (EGD) (Acute ~2017) History of left inguinal hernia repair (Acute) Family History (Updated 09/09/19 @ 14:30 by Angela Willis) Father Hypertension HPI HPI Surgical H&P: Yes HPI: FIDENCIO DOUGLASS, is a 54 M who presents to the office today for surgical consultation regarding accelerating problems with gastroesophageal reflux disease. The patient presents in self-referral. His primary care physician is Dr. Parra but the patient instructs me that Dr. Parra will be retiring soon. The patient states that for many years he has had reflux. Complains that in the morning after eating he can feel the food coming back up. He will take Prilosec/omeprazole 20 mg sometimes 2 times sometimes 3 times a day. Symptoms are worse at night as well when he lies down. He does not have any coughing. He does note however shortness of breath when he climbs a flight of stairs or plays racquetball. 2 years ago he had a combined upper and lower endoscopy. States that he has been instructed that he does have a hiatal hernia. He is familiar with the patient that I have assisted with a antireflux procedure who had a good outcome. The patient presents to see if he would be a candidate for this. He is a otr tanker truck driver. He states that he has not had other cardiac or pulmonary issues. He is not ever required a stress test. He has had a previous cholecystectomy. He has had a pyloric stenosis procedure pyloromyotomy at 6 weeks of age. He has had a previous left inguinal hernia repair. ROS General General: No weight change, appetite, fatigue, colon cancer, breast cancer or weakness HEENT HEENT: No difficulty swallowing, eye injury, eye surgery, swollen glands or hoar seness Endo Endocrine: No thyroid disease, diabetes mellitus, thyroid cancer, Hair loss, heat intolerance or cold intolerance Musc Musculoskeletal: Yes back problems and arthritis; no rheumatoid arthritis, gout or joint pain Cardio Cardiovascular: Yes high blood pressure; no murmur, pacemaker, heart disease, atrial fibrillation, heart attack, heart stent, palpitations, shortness of breat with exertion or chest pain Psych Psychiatric: Yes anxiety; no depression or hearing voices Resp Respiratory: Yes shortness of breath, No sleep apnea, No cough, No COPD, No asthma, No emphysema, No wheezing Gastro Gastrointestinal: No abdominal pain, No nausea or vomiting, Yes diarrhea, No constipation, Yes blood in stool, Yes acid reflux, No hemorrhoids, No ulcers, No gallbladder problem, No black,tarry stools Pierre Hematologic: No blood thinners, No blood disorders, No bleeding, No anemia, No blood clots Neuro Neurologic: No weakness Exam Const General: cooperative, healthy appearing, comfortable, no acute distress Nutritional Appearance: average body habitus Orientation: alert, awake, oriented x3 HENMT Head: normal to inspection Eyes General: appearance normal, both eyes and all related structures Resp Effort & Inspection: normal respiratory effort Auscultation: clear to auscultation bilaterally Cardio Rate: regular rate Rhythm: regular rhythm Heart Sounds: no murmurs GI Palpation: soft Other: Well-healed transverse incision inferior to the umbilicus. Tender to palpation in the epigastrium and right upper quadrant and right mid abdomen with voluntary guarding. Normal bowel sounds. Otherwise soft. No hepatosplenomegaly. Patient is more superficially tender to touch than otherwise anticipated Skin General: no rashes or lesions noted Neuro Cognition: normal cognition Extrem General: no calf tenderness bilaterally Psych Affect: normal affect Assessment & Plan Problems 1. Gastroesophageal reflux disease, esophagitis presence not specified K21.9 Plan 54-year-old gentleman. He appears to have symptoms that correlate well with escalating gastroesophageal reflux disease and symptomatic hiatal hernia. I have recommended to him that we obtain a barium swallow. I am interested in the size of the hiatal hernia as well as his history of what sounds like a pyloromyotomy. I recommend to him a esophagogastroduodenoscopy with Chau probe placement. I recommend to him a manometric study. In great detail I have discussed with him the reasons behind this testing and the importance of it prior to us considering proceeding with a laparoscopic hiatal hernia repair and reflux procedure. I am suspecting that he would be a better candidate for a partial wrap. He has had an opportunity to ask and have questions answered. He will proceed with testing at his discretion. Cc: Dr. Fidel Cleveland M.D., F.A.C.S. Assessment & Plan Problems 1. Gastroesophageal reflux disease, esophagitis presence not specified K21.9 2. Hiatal hernia K44.9 3. Gastritis K29.70 Plan Today's appointment was a 40-minute [id number] consultative appointment. The patient had initially presented to me with reflux-like symptoms and dyspnea on exertion. As noted above my initial effort was to obtain a barium swallow. A moderate sized paraesophageal hiatal hernia was identified. Reflux was identified. Subsequently on September 27, 2019 I performed a esophagogastroduodenoscopy with biopsies and pH probe placement. Mild gastritis was identified. H. pylori negative. Distal esophageal biopsies showed superficial erosion and acute inflammation. Fungus was negative. Day 1 DeMeester score was 83.3. Day 2 was 43.4. Average was 64.9 The patient then had a esophageal manometry on September 22, 2019. 10 swallows were analyzed. The patient had good bolus clearance but based upon DCI had ineffective swallow. Is felt that the esophageal swallowing pattern pressure was low. LES relaxation is normal. I had an extensive discussion with the patient today. It is of note that he does not experience clinically any difficulty with swallowing. He never has food that gets hung up or feels like peristalsis is slow. We had an extensive discussion regarding his hiatal hernia. I believe that this is contributing to his dyspnea on exertion particularly as he climbs stairs. It is apparent that he has a wide open lower esophagus with acid reflux. He reminds me that in infancy had what sounds like a pyloromyotomy. He has had a previous cholecystectomy. In great detail we discussed treatment options. I am offering him a laparoscopic repair of his hiatal hernia and a laparoscopic toupet. Great care will be pursued with hiatus approximation and measurement. I am not anticipating an overzealous wrap. He has had an opportunity to ask and have questions answered. He is a long-local driver. He is aware that he will require some time off of work. No guarantees of success have been offered. We did discuss the potential for postprocedural upper endoscopy and/or dilatation if indicated. Based upon his clinical presentation with no difficulties with swallowing I believe that the conservative toupet procedure is the best means of approach. He has had an opportunity to ask multiple questions and have them answered. We will schedule and proceed at his discretion. Cc: Dr. Audelia Cleveland M.D., F.A.C.S. Coding Level of Care Code Off vis,est,level 3 Diagnoses Gastroesophageal reflux disease, esophagitis presence not specified K21.9 ??Esophagitis presence: esophagitis presence not specified Hiatal hernia K44.9 Gastritis K29.70 I have re-examined the patient. There are no clinical changes since date of exam.
--- NOTE | 2019-10-31 06:35 | PCM.DC.GS ---
<Karan Cleveland - Last Filed: 10/31/19 06:35> Discharge Diet: - - Liquid diet with advancement as discussed Discharge Activity: May Not Drive - for 3-5 days or while taking narcotic pain medicine. May shower in (days): 1 Lifting Restrictions: 10 pounds Call your doctor if your incision/area has: Continuous Slow Oozing, Sudden Increased Bleeding, Increased Pain/ Swelling, Increased Redness, Foul Smelling Discharge Call your doctor if you observe: Fever of 101 or Higher Suture Line Care: Avoid Pulling/Pushing, Avoid Pinching/Bending Additional Dressing/Incision Instructions:: Change or remove dressing in 4 days. Leave steri-strips in place for 1 week. Allergies/Adverse Reactions: Allergies cephalexin [From Keflex] Allergy (Mild, Verified 10/31/19 05:50) rash Medications to take at Discharge lisinopril 10 mg tablet 10 mg PO DAILY #30 tab 09/09/19 pravastatin 20 mg tablet 20 mg PO DAILY #30 tab 09/09/19 sumatriptan succinate 50 mg tablet 50 mg PO PRN PRN #10 tab 09/09/19 Omeprazole [Prilosec] 20 mg PO BID 09/23/19 Calcium (Elemental) [Os-Siva 500] 500 mg PO DAILY 10/24/19 Orders to be completed after discharge: 12 Lead EKG [[facility]S] Time Frame: 10/24/19, Facility: [facility], Location: Cardiovascular Services Basic Metabolic Profile (BMP) Time Frame: 10/24/19, Facility: [facility], Location: Laboratory CBC-Complete Blood Cnt No Diff Time Frame: 10/24/19, Facility: [facility], Location: Laboratory Primary Care Physician: Paula Bledsoe NP-C [Primary Care Provider] - Test Results: Test results from this visit will be discussed in further detail at your follow-up appointment, if applicable. Please Follow Up With: Karan Cleveland MD - [phone] When: Call to make an appointment to be seen in about 10 days. <Awilda Selby - Last Filed: 11/01/19 07:54> Discharge Diet: - - Liquid diet with advancement as discussed. Additional Instructions: Diet after Suzanna Fundoplication Surgery After surgery, you will have swelling where the esophagus connects to the stomach. The swelling will make it hard for you to swallow or burp because the opening will be smaller than normal. The feeling of tightness and trouble swallowing will go away over the next 3 to 12 weeks. Diet after surgery for the first 7 days: Water, Milk or cream, Fruit or vegetable juices without pulp, coffee or tea, Instant breakfast drinks, Creamed soups without chunks, yogurt without fruit, Broth, Thin cream of wheat or oatmeal, Smoothies without fruit chunks or seeds, pudding, ice cream, sobert, frozen yogurt, milkshakes without nuts or candies, jello, applesauce, very thin mashed potatoes. 7-14 days after surgery: All foods under the first 7 days after surgery plus Finely chopped pasta, fluffy, soft rice, grilled chicken, and flaky fish, 15-30 days after surgery: May include all foods except tough meats (i.e. steak, roast), Any bread products (i.e. bread, croutons, crackers), nuts and raw vegetables At 4 weeks after surgery you may include all foods even tough meats, bread products, raw veggies and nuts. Avoid carbonated beverages, including beer for 3-4 weeks. Limit or avoid foods that may cause stomach bloating or increased gas. Recommend 5 or 6 small meals each day instead of 3 large meals. Remember: Any time you have trouble swallowing, increased pain, or you feel like food is stuck, return to full liquid diet for a day or two. Please contact your surgeon if food is getting stuck or you fell nauseated. Test Results: Test results from this visit will be discussed in further detail at your follow-up appointment, if applicable.
--- NOTE | 2019-10-31 07:15 | HERN_PTH ---
PATIENT: KARSTEN DOUGLASS LOC: MS3 U#:[id number] AGE/SX: 54/M ROOM: ID323 RE10/31/[address]: Dr. Karan Cleveland MD : 1965 BED: 1 DIS: 11/01/2019 SPEC #: [id number] RECD: 10/31/19 13:22 STATUS: KODAK TRICIA #: [id number] MAXIM: 10/31/19 07:[address]: Karan Cleveladn DEPT: SURGICAL PATHOLOGY RECD BY: Clarence Arriola ENTERED: 10/31/19 13:39 SP TYPE: Hernia OTHR DR: Paula Bledsoe, KAYAK MAKER-Ayla Tissues: HERNIA Procedures: Surgery Specimen Level II HEADER OPERATION: Laparoscopic hiatal hernia repair PRE-OP DIAGNOSIS: GERD, hiatal hernia, gastritis TISSUE SUBMITTED: Hernia sac MICROSCOPIC DIAGNOSIS Hiatal hernia sac, herniorrhaphy: Consistent with hernia sac. AM:corbin 11/01/19 MICROSCOPIC DESCRIPTION Slides are reviewed. GROSS DESCRIPTION Received in fixative is one container labeled with the patient's name and designated hernia sac. The specimen consists of two irregular fragments of glistening, pink-wan soft tissue that in aggregate measure 6 x 3.5 x 1 cm. Serial sections do not reveal mass lesions. Senior Project Coordinator sections are submitted in one cassette. / AM:corbin 10/31/19 TC:5 CPT: 13484
[2019-10-31] MEDS: Bupivacaine Mpf 0.5% 30 ML VIAL (10:38)
--- NOTE | 2019-10-31 10:48 | PCM.OPRPT ---
Problem List (1) GERD (gastroesophageal reflux disease) Status: Acute Qualifiers: Esophagitis presence: with esophagitis Qualified Code(s): K21.0 - Gastro-esophageal reflux disease with esophagitis Report of Operation Date of Procedure: 10/31/19 Pre-Operative Diagnosis: Moderate hiatal hernia with intractable gastroesophageal reflux disease and esophagitis and dyspnea on exertion Post-Operative Diagnosis: Same Surgery/Procedure Performed:: Laparoscopic toupet procedure with esophagogastroduodenoscopy Description of Surgical Findings:: Timeout and informed consent was obtained. 54-year-old gent was taken the operating placed supine on the table on a beanbag. He underwent general endotracheal intubation anesthesia. Clindamycin 900 g were given intravenously preoperatively. The abdomen sterilely prepped and draped. Ioban draping was used as well. He had been placed in a low lithotomy position. Careful buttock padding was performed. Careful arm padding performed. In the left upper quadrant I used a 5 mm direct Visiport technology to gain clean access to the abdomen. There were no adhesions from a remote pyloromyotomy as an . I placed another 5 mm port laterally on the left. 10 mm port in the epigastrium the left. 5 mm port right epigastrium and an additional 5 m incision was made within the superior epigastrium and it was at that site that I inserted a Corinne's retractor and carefully elevated the left lobe of the liver and that was secured in place. Quite a sizable hiatal defect and hernia was identified. I used the harmonic scalpel and incised the epiphrenic ligament so as to then gain access to the sac and carefully was able to bluntly and Harmonic Scalpel dissection released the sac using the pneumoperitoneum to help to part of the dissection. I was able to easily identify both the right and the left herman. Peritoneum was kept intact on the surfaces. I was able to completely reduce the stomach. An OG tube was placed. I then worked my way posteriorly to release the posterior fat pad and completely release the stomach. I then transected the short gastrics were needed to allow for better mobilization of the fundus. A single Hemoclip was used for hemostasis. I felt that I got excellent visualization and excellent mobilization of the distal esophagus as I done part of my dissection into the posterior mediastinum and it was able to get circumferential dissection. The pleura were not entered. The posterior vagus nerve identified protected. I was then able to approximate the crura using pledgeted 0 Ethibond sutures. Approximately 6 simple sutures with pledgets was required to approximate the posterior crura. I then placed an apical pledgeted suture to reapproximate anterior portion of the hiatus. I used a 46 [place] bougie to assure adequate sizing. Calcium that I had excellent repair of the diaphragm. Then was able to wrap the fundus of the stomach posteriorly and I secured the posterior aspect to the hiatus repair with 0 Ethibond that was pledgeted. I then performed a toupet procedure with a partial posterior wrap. The patient does have diminished manometrics. I elected to make the wrap approximately 240 degrees. I placed an apical suture of 2-0 Ethibond with pledgets to secure the proximal aspect of the intra-abdominal stomach to the epiphrenic ligament and then to the wrap portion of the stomach. In a running fashion I then secured that edge of the esophagus to the stomach. I then inspected the fundus on the left-hand side of the esophagus that had been nicely freed up wanted to make sure there was not too much tension the bougie was in place and then again using a 2 oh pledgeted Ethibond secured the apical portion of that fundus to the epiphrenic ligament into the anterior lateral aspect of the esophagus. Again in a running fashion I approximated the fundic wrap to the esophagus. On both sides I performed this for approximately 4 cm. I felt that I had a good posterior wrap this was inspected photograph was obtained. I then performed upper endoscopy. The scope was easily advanced I could tell that the EG junction was about 45 cm. The scope easily advanced into the stomach. Then able to retroflex the scope and inspect the wrap which was nicely intact. Excess fluid naris aspirated free. An OG tube was placed to assist with that. During the endoscopic insufflation intra-abdominal a flu was instilled and there was no evidence of any air leak. It is of additional note that prior to the posterior wrap I did excise the sac from the anterior wall of the EG junction using harmonic scalpel that specimen was placed in a retrieval bag and it was exited through 1 of the ports. At the completion the wrap appeared to be nicely intact the diaphragm nicely repaired hemostasis was intact there is been very minimal blood loss. The telemeter port site was closed with [id number]-zb-[id number] suture of 0 Vicryl. The remaining ports were removed under visualization. The abdomen was allowed to deflate of the CO2. Skin edges were approximated up to 4 Monocryl subdermal stitches. Steri-Strips Telfa and OpSite dressings applied. Sponge and instrument and needle counts reported the surgeon for correct. Blood loss minimal. No apparent complication. Specimen hernia sac. Drains none. Blood loss minimal. Karan Cleveland M.D., F.A.C.S. Type of Anesthesia:: General Anesthesiologist: Agustin Goff
[2019-10-31] MEDS: 0.9% Saline Lock 10 ML Syringe IV ×2 (13:39→15:45)
[2019-10-31] MEDS: Ondansetron 4 MG/2 ML Vial IV (13:39)
[2019-10-31] MEDS: Morphine 2 MG/ML Syringe IV (15:45)
--- NOTE | 2019-10-31 17:25 | PCM.PN.BLA ---
Progress Note Patient is doing well, no nausea, pain is controlled, he has been able to void I will initiate clear liquids. He has no particular complaints. We will recheck in the a.m. STROKE Vital Signs/Narrative: Vital Signs Temp Pulse Resp BP Pulse Ox 10/31/19 16:46 98.8 F 99 18 134/76 H 94 10/31/19 15:00 95 10/31/19 14:46 98 F 95 16 148/97 H 96
[2019-10-31] MEDS: Lactated Ringers 1,000 ML 70 ML IV (17:36)
--- NOTE | 2019-10-31 17:53 | NURSING ---
Dr. Cleveland in to assess pt. After doctor advanced diet and left room pt up to recliner and ordering clears for dinner. tolerated well.
[2019-10-31] MEDS: Acetaminophen 325 MG Tablet 650 MG PO (21:43)
[2019-10-31] MEDS: Pantoprazole Sodium 20 MG Tablet PO (21:43)
--- NOTE | 2019-11-01 00:07 | NURSING ---
ambulating in fu, denies needs at this time
[2019-11-01] MEDS: Acetaminophen 325 MG Tablet 650 MG PO (04:06)
[2019-11-01 04:10] VITALS: BP 158/92; PULSE 87; RESP 18; TEMP 37.1; O2SAT 95
[2019-11-01] MEDS: Ketorolac 15 MG/ML Vial IV (05:12)
--- NOTE | 2019-11-01 06:05 | PN.SURG_ITS ---
Subjective: Patient is tolerating clear liquids very easily. No complaints of reflux. Discomfort is tolerable. He has not yet had flatus. - Physical Exam Vitals/I&O's: Vital Signs Temp Pulse Resp BP Pulse Ox 98.7 F 87 18 158/92 H 95 11/01/19 04:10 11/01/19 04:10 11/01/19 04:10 11/01/19 04:10 11/01/19 04:10 Oxygen Flow Rate (L/min) 2 Oxygen Delivery Method Room Air Weight: 222 lb 14.197 oz Body Mass Index (BMI) 27.8 Intake and Output for Last 24 Hours 10/30/19 10/31/19 11/01/19 23:59 23:59 23:59 Intake Total 1156 / 1556 650 / 650 Output Total 350 / 350 Balance 1156 / 1206 300 / 300 General: Alert, Oriented x3, Cooperative, No apparent distress Abdomen: Soft, Non Tender, Hypoactive Bowel Sounds Current Medications Acetaminophen (Tylenol) 650 mg PO Q6H PRN PRN PRN Reason: Pain Score 1-07/07 Last Admin: 11/01/19 04:06 Dose: 650 mg Documented by: Hydrocodone Bitart/Acetaminophen ([place] 5mg-325mg) 1 - 2 tablet PO Q4H PRN PRN PRN Reason: Pain Score 1-1010 Enoxaparin Sodium (Lovenox) 40 mg SC DAILY@0600 [facility] Lactated Ringer's () 1,000 mls @ 70 mls/hr IV .[id number] [facility] Last Admin: 10/31/19 17:36 Dose: 70 mls/hr Documented by: Sodium Chloride () 250 mls @ 15 mls/hr IV .[id number] PRN PRN Reason: Saline Flush Sodium Chloride () 250 mls @ 15 mls/hr IV .[id number] PRN PRN Reason: Additional IVPB Infusion Ketorolac Tromethamine (Toradol) 15 mg IV Q6H PRN PRN PRN Reason: Pain Score 1-10 Last Admin: 11/01/19 05:12 Dose: 15 mg Documented by: Lisinopril (Zestril) 10 mg PO DAILY [facility] Morphine Sulfate () 2 - 4 mg IV Q2H PRN PRN PRN Reason: Pain Score 1-10/10 Last Admin: 10/31/19 15:45 Dose: 4 mg Documented by: Ondansetron HCl (Zofran) 4 mg IV Q8H PRN PRN PRN Reason: NAUSEA Last Admin: 10/31/19 13:39 Dose: 4 mg Documented by: Pantoprazole Sodium (Protonix) 20 mg PO BID NANCY Last Admin: 10/31/19 21:43 Dose: 20 mg Documented by: Pravastatin Sodium (Pravachol) 20 mg PO DAILY NANCY Rizatriptan Benzoate (Maxalt) 10 mg PO DAILY PRN PRN Reason: MIGRAINE SYMPTOMS Sodium Chloride () 10 - 40 ml IV UD PRN PRN Reason: SALINE FLUSH Last Admin: 10/31/19 15:45 Dose: 10 ml Documented by: Medical Necessity - Tobacco Use Smoking Status: Never smoker Tobacco Use: Non-smoker Assessment/Plan All Active Problems (Last Reviewed 10/07/19 @ 15:23 by Angela Willis) Gastritis (Acute) Hiatal hernia (Acute) GERD (gastroesophageal reflux disease) (Acute) The patient looks extremely comfortable. I anticipate a liquid/dissolvable diet today and discharge today. Would not necessarily need to await flatus.
[2019-11-01] MEDS: Enoxaparin 40 MG/0.4 ML Syringe SC (06:39)
[2019-11-01] MEDS: Lactated Ringers 1,000 ML 70 ML IV (06:42)
[2019-11-01] MEDS: Pantoprazole Sodium 20 MG Tablet PO (10:57)
[2019-11-01] MEDS: Lisinopril 10 MG Tablet PO (10:57)
[2019-11-01 11:10] VITALS: BP 136/92; PULSE 71; RESP 16; TEMP 36.6; O2SAT 95
== END 2019-11-01 11:40 | disposition home or self-care (01) ==
LOC: SDC 15:06 → MS3 15:06
PROVIDERS: Admitting Provider Surgery; PCP Nurse Practitioner Family; Referring Provider Surgery; Visit Provider Surgery
PROC: (CPT 43325; principal; 2019-10-31 06:55)
DX: K44.9 Diaphragmatic hernia without obstruction or gangrene (principal); R06.09 Other forms of dyspnea; I10 Essential (primary) hypertension; K58.9 Irritable bowel syndrome, unspecified; E78.5 Hyperlipidemia, unspecified; K29.70 Gastritis, unspecified, without bleeding; K21.9 Gastro-esophageal reflux disease without esophagitis; Z79.899 Other long term (current) drug therapy
CPT/HCPCS: 43281; 36415; 80048; 85027; 88302; 93005; 96372; 96374; 96375; 99218; 99251; J7120; A4216; G0378; G0379; G0463; J2405

== ENCOUNTER → 2025-04-07 | Outpatient (CLI) | payer OTHER, SELFPAY ==
--- NOTE | 2025-04-07 12:12 | NM_ITS ---
PROCEDURE: GASTRIC EMPTYING STUDY 04/07/2025 REASON FOR EXAM: GERD TECHNIQUE: The patient ingested a standard meal of oatmeal, radiopharmaceutical and water. There was no vomiting postprandially. Anterior and posterior planar images of the upper abdomen were obtained for 1 minute immediately following the meal at 1h, 2h and 4h if more than 10% of the activity persisted within the stomach. Regions of interest were drawn, and a geometric mean was used to calculate a [id number]. RADIOPHARMACEUTICAL: Sulfur colloid DOSE 1mCi FINDINGS: Percent activity remaining in stomach: 1 hour 31 % (normal 37-90%) NM/Gastric Emptying Study IMPRESSION: Normal gastric emptying examination. Reading Location: [facility]-
== END | disposition home or self-care (01) ==
PROVIDERS: PCP Nurse Practitioner Family; Referring Provider Internal Medicine Gastroenterology; Visit Provider Internal Medicine Gastroenterology
DX: K21.00 Gastro-esophageal reflux disease with esophagitis, without bleeding (principal)
CPT/HCPCS: 78264; A9541

== ENCOUNTER → 2025-04-28 | Outpatient (CLI) | payer OTHER, SELFPAY ==
--- NOTE | 2025-04-28 13:49 | CT_ITS ---
PROCEDURE: ABDOMEN/PELVIS WITH CONTRAST 04/28/2025 REASON FOR EXAM: ABDOMINAL PAIN ANDIRRHEA TECHNIQUE: ABDOMEN/PELVIS WITH CONTRAST Coronal and Sagittal reconstruction series were provided. CONTRAST: Isovue-300 VOLUME: 100 mL One or more dose reduction techniques were used (e.g., Automated exposure control, adjustment of the mA and/or kV according to patient size, use of iterative reconstruction technique. RADIATION DOSE SUMMARY: CTDlvol: 11.3 mGy DLP: 729.64 mGycm COMPARISON: None FINDINGS: Lung bases: Lung bases are clear. The patient is status post subtotal gastrectomy for bariatric surgery. Liver: Diffuse fatty infiltration. There is a 1.6 cm cyst in the lateral aspect of the left lobe of the liver. Gallbladder: Surgically absent. Spleen: Normal size. Pancreas: Normal size without evidence of mass surrounding inflammation or ductal dilation. Adrenals: Unremarkable Kidneys: Small bilateral renal cysts more prominent on the right side. The largest measures 2.8 cm. Bladder: Heterogeneous enlargement of the prostate with indentation of the bladder base. Diffuse bladder wall thickening. Small bilateral inguinal hernias containing fat more prominent on the right side. Bowel: Colonic diverticulosis without diverticulitis. Appendix: The appendix is not identified. There is no inflammatory process identified in the right lower quadrant to suggest appendicitis. Lymph nodes: Unremarkable. Vasculature: The abdominal aorta and IVC are normal. Peritoneum / Retroperitoneum: Unremarkable Bones: Degenerative changes of the spine. Straightening of the normal lumbar lordosis. CT/Abdomen/Pelvis WITH Contrast IMPRESSION: Status post cholecystectomy. Small cyst in the lateral aspect of the left lobe of the liver. Diffuse fatty infiltration. Status post subtotal gastrectomy for bariatric surgery. Heterogeneous enlargement of the prostate with indentation of the bladder base. Diffuse bladder wall thickening. Reading Location: [id number]
== END | disposition home or self-care (01) ==
LOC: CT 13:19
PROVIDERS: PCP Nurse Practitioner Family; Referring Provider Internal Medicine Gastroenterology; Visit Provider Internal Medicine Gastroenterology
DX: K29.70 Gastritis, unspecified, without bleeding (principal); K44.9 Diaphragmatic hernia without obstruction or gangrene
CPT/HCPCS: 74177; Q9967

== ENCOUNTER → 2025-05-19 | Outpatient (CLI) | payer OTHER, SELFPAY ==
[2025-05-19 14:18] LABS: Hematocrit 49.3 % (40-54); Hemoglobin 17.8 g/dL (13.0-16.5); Immature Granulocytes Count 0.010 X10^3/uL (0.0-0.0); Immature Reticulocyte Fraction 5.90 % (3.00-15.90); Mean Corp Hgb Conc 36.1 g/dL (32-36); Mean Corpuscular Volume 92.3 fL (80-94); Mean Platelet Vol. 10.7 fl (6.2-12.0); NRBC Flagged by Analyzer 0 % (0-5); Platelet Count 224 K/mm3 (150-450); RBC Distribution Width CV 12.0 % (11.6-14.6); RBC Distribution Width SD 40.7 fl (35.1-43.9); Red Blood Count 5.34 M/mm3 (4.6-6.2); Reticulocyte Count 1.68 % (0.5-1.5); White Blood Count 6.2 K/mm3 (4.4-11.0)
[2025-05-19 15:52] LABS: Ferritin 58 ng/mL (37-417)
[2025-05-19 15:55] LABS: CRP < 3.00 mg/L (0.0-3.0); LDH 206 U/L (87-241)
[2025-05-23 14:08] LABS: ACCA 5 units (0-90); ALCA 65 units (0-60); AMCA 13 units (0-100); Albumin 3.8 g/dL (2.9-4.4); Cytoplasmic Ab (C-ANCA) <1:20 titer (Neg:<1:20); Gamma Globulin 1.3 g/dL (0.4-1.8); Immunoglobulin A 168 mg/dL (90-386); Immunoglobulin G 1136 mg/dL (603-1613); Immunoglobulin M 152 mg/dL (20-172); PROEL- TOTAL PROTEIN 7.3 g/dL (6.0-8.5); Perinuclear Ab (P-ANCA) <1:20 titer (Neg:<1:20); QNTFERON TB Mitogen Value > 10.00 IU/mL (.); QNTFERON TB Nil Value 0.02 IU/mL (.); QNTFERON TB1+ Ag Value 0.02 IU/mL (.); QNTFERON TB2+ Ag Value 0.03 IU/mL (.); QNTIFERON TB Positive Criteria Negative (Negative)
[2025-05-24 21:08] LABS: Anti-Chromatin <0.2 AI (0.0-0.9); Anti-Jo <0.2 AI (0.0-0.9); Anti-dsDNA Ab 1 IU/mL (0-9); Egg, White <0.10 kU/L (Class 0); SCALLOP <0.10 kU/L (Class 0); SESAME SEED <0.10 kU/L (Class 0); SJOGREN'S Anti-SS-A test 0.2 AI (0.0-0.9); SJOGREN'S Anti-SS-B test < 0.2 AI (0.0-0.9); Walnut, (Food) <0.10 kU/L (Class 0)
== END | disposition home or self-care (01) ==
LOC: LAB 13:29
PROVIDERS: Internal Medicine Gastroenterology; PCP Physician Assistant; Referring Provider Student in an Organized Health Care Education/Training Program; Visit Provider Student in an Organized Health Care Education/Training Program
DX: K29.70 Gastritis, unspecified, without bleeding (principal); K44.9 Diaphragmatic hernia without obstruction or gangrene
CPT/HCPCS: 36415; 82728; 82784; 83010; 83516; 83615; 84165; 85025; 85045; 85652; 86003; 86036; 86037; 86140; 86225; 86235; 86255; 86334; 86480; 86671

== ENCOUNTER → 2025-07-21 | Outpatient (CLI) | payer OTHER, SELFPAY ==
--- NOTE | 2025-07-21 07:54 | US_ITS ---
PROCEDURE: ABD LIMITED W/ ELASTOGRAPHY REASON FOR EXAM: FATTY LIVER COMPARISON: None. TECHNIQUE: Procedure Code: [id number] Modality: US Procedure: ABD LIMITED W/ ELASTOGRAPHY Right upper quadrant abdominal ultrasound. Leobardo ElastQ Imaging shear wave elastography for non-invasive assessment of liver tissue stiffness. Leobardo EPIQ Elite. FINDINGS: LIVER: Size: Enlarged (hepatomegaly) Length: 20 cm Echotexture: Diffusely echogenic suggesting fatty infiltration Contour: Normal Lesions: 2 cm x 1.6 cm 1.7 cm cyst in the left lobe of the liver. Elastography: EQI Med: 5.2 kPa EQI Med [place]: 1.32 m/s IQR/Med: 6 point %* GALLBLADDER: Surgically absent. COMMON BILE DUCT: Normal measuring 5.3 mm . PANCREAS: Visualized portions are unremarkable. The distal body and tail are obscured by bowel gas. Visualized portions of the right kidney are unremarkable. Several small cysts are seen in the right kidney. The largest measures 3.4 cm x 3.5 cm 3.9 cm. No right upper quadrant ascites. US/ABD Limited w/ Elastography IMPRESSION: NO TO MILD HEPATIC FIBROSIS Hepatomegaly and diffuse fatty infiltration of the liver. Right renal cysts. Status post cholecystectomy. Reference Values: SRU <1.37 m/s (5.7kPa): No to mild fibrosis 1.37 m/s - 2.2 m/s: Moderate to severe fibrosis >2.2 m/s (15kPa): Significant fibrosis / cirrhosis METAVIR Score F2 or higher: 1.34 m/s (5.7kPa) F3 or higher: 1.55 m/s (7.3kPa) F4: 1.80 m/s (10kPa) * If the IQR/Med is >30%, the variance in the measurements is a large and the a ccuracy of the measurement may be in question. Reading Location: [facility]
== END | disposition home or self-care (01) ==
LOC: US 07:54
PROVIDERS: PCP Physician Assistant; Referring Provider Student in an Organized Health Care Education/Training Program; Visit Provider Student in an Organized Health Care Education/Training Program
DX: K76.0 Fatty (change of) liver, not elsewhere classified (principal)
CPT/HCPCS: 76705; 76981